=== PATIENT | male | born 1980 | race Two or more races ===

== ENCOUNTER 2025-01-11 09:56 | Emergency (ER) | payer SELFPAY ==
[2025-01-11] MEDS ORDERED: Sodium Chloride 0.9% 10 ML Syringe FLUSH PRN (10:18)
[2025-01-11] MEDS: Sodium Chloride 0.9% 1,000 ML IV ONE (10:30)
[2025-01-11 10:42] LABS: BASOPHILS ABSOLUTE AUTO 0.02 10^3/uL (0.00-0.10); BASOPHILS PERCENT AUTO 0.4 % (0.0-1.0); EOSINOPHILS ABSOLUTE AUTO 0.09 10^3/uL (0.10-0.30); HEMATOCRIT 45.4 % (40.0-52.0); HEMOGLOBIN 14.8 g/dL (13.0-17.0); LYMPHOCYTES ABSOLUTE AUTO 2.51 10^3/uL (1.00-4.00); LYMPHOCYTES PERCENT AUTO 56.4 % (20.0-40.0); MEAN CORPUSCULAR HEMOGLOBIN 27.8 pg (27.0-31.0); MEAN CORPUSCULAR HGB CONC 32.6 g/dL (32.0-36.0); MEAN CORPUSCULAR VOLUME 85.3 fL (82.0-92.0); MEAN PLATELET VOLUME 9.7 fL (7.4-10.4); MONOCYTES ABSOLUTE AUTO 0.68 10^3/uL (0.10-0.80); MONOCYTES PERCENT AUTO 15.3 % (2.0-8.0); NEUTROPHILS ABSOLUTE AUTO 1.15 10^3/uL (2.50-7.00); NEUTROPHILS PERCENT AUTO 25.9 % (50.0-70.0); PLATELET COUNT,PLT 345 10^3/uL (150-400); RED BLOOD CELL COUNT 5.32 10^6/uL (4.50-6.00); RED CELL DISTRIBUTION WIDTH 13.9 % (11.5-14.5); WHITE BLOOD CELL COUNT,WBC 4.45 10^3/uL (5.00-10.00)
[2025-01-11] MEDS: Iopamidol 755 Mg/ML 100 ML Bottle IV ONE (10:54)
[2025-01-11] MEDS: Sodium Chloride 0.9% 50 ML IV SCH (10:55)
[2025-01-11 10:57] LABS: ALANINE AMINOTRANSFERASE,ALT 38 U/L (14-63); ALKALINE PHOSPHATASE 113 U/L (46-116); ANION GAP 13.4 mmol/L (5-15); ASPARTATE AMNIOTRANSFERASE,AST 27 U/L (15-37); BILIRUBIN TOTAL 0.4 mg/dL (0.2-1.0); BLOOD UREA NITROGEN,BUN 18 mg/dL (7-18); CHLORIDE,CL 103 mmol/L (98-107); CREATININE 0.76 mg/dL (0.51-1.17); GLUCOSE RANDOM 106 mg/dL (70-140); LIPASE 41 U/L (16-77); POTASSIUM,K 4.4 mmol/L (3.5-5.1); PROTEIN TOTAL,TP 8.2 g/dL (6.4-8.2); SODIUM,NA 140 mmol/L (136-145)
[2025-01-11 10:58] LABS: ESTIMATED GFR 115 mL/min (>=60)
[2025-01-11 11:02] LABS: APPEARANCE,URINE CLEAR (CLEAR); BILIRUBIN,URINE NEGATIVE (NEGATIVE); COLOR,URINE YELLOW (YELLOW); GLUCOSE,URINE NEGATIVE (NEGATIVE); KETONES,URINE NEGATIVE (NEGATIVE); LEUKOCYTE ESTERASE,URINE NEGATIVE (NEGATIVE); NITRITE,URINE NEGATIVE (NEGATIVE); OCCULT BLOOD,URINE NEGATIVE (NEGATIVE); PH,URINE 7.5 (5.0-9.0); PROTEIN,URINE NEGATIVE (NEGATIVE); UROBILINOGEN,URINE 0.2 E.U./dL (0.2-1.0)
[2025-01-11] MEDS ORDERED: Famotidine 20 MG Tab ONE (11:38)
[2025-01-11] MEDS: Alum Hydrox/Mag Hydrox/Simeth 30 ML, Lidocaine 2% 15 ML PO ONE (11:45)
[2025-01-11] MEDS: Famotidine 20 MG Tab PO ONE (11:46)
== END 2025-01-11 12:05 | disposition home or self-care (01) ==
LOC: KA.ED 09:56
DX: K52.9 Noninfective gastroenteritis and colitis, unspecified (principal); K64.9 Unspecified hemorrhoids; Z79.899 Other long term (current) drug therapy
CPT/HCPCS: 74177; 80053; 81003; 83690; 85025; 96360; 99284-25; A9270-GY; J7030; Q9967